=== PATIENT | female | born 1980 | race Caucasian/White ===

== ENCOUNTER 2016-12-04 18:31 | Emergency (ER) | payer SELFPAY ==
[2016-12-04] MEDS ORDERED: ONDANSETRON HCL 4 MG/2 ML VIAL ONE (18:59)
[2016-12-04] MEDS ORDERED: ONDANSETRON ODT 4 MG TAB.RAPDIS ONE (19:00)
[2016-12-04] MEDS ORDERED: FENTANYL 250 MCG/5 ML VIAL ONE (19:01)
[2016-12-04 19:04] LABS: BASOPHILS 0.4 % (0.0-2.0); EOSINOPHILS 0.8 % (0.0-6.0); EOSINOPHILS# 0.1 X 10^3uL (0.0-0.4); HEMATOCRIT 39.3 % (36.0-48.0); HEMOGLOBIN 13.4 g/dL (12.0-16.0); LYMPHOCYTES 30.6 % (20.0-40.0); LYMPHOCYTES# 2.5 X 10^3uL (0.8-3.8); MEAN CELL VOLUME 89.5 fL (80.0-100.0); MEAN CORPUS. HGB CONCENTRATION 34.1 g/dL (32.0-36.0); MEAN CORPUSCULAR HEMOGLOBIN 30.5 pg (29.0-35.0); MEAN PLATELET VOLUME 8.9 fL (7.4-10.4); MONOCYTES# 0.6 X 10^3uL (0.2-1.0); NEUTROPHILS 61.2 % (54.0-75.0); NEUTROPHILS# 5.1 X 10^3uL (2.6-6.7); PLATELET COUNT 280 X 10^3uL (130-440); RED BLOOD COUNT 4.39 X 10^6uL (4.20-6.10); WHITE BLOOD COUNT 8.3 X 10^3uL (3.9-10.7)
[2016-12-04 19:10] LABS: BLOOD UREA NITROGEN 12 mg/dL (7-17); CALCIUM 8.9 mg/dL (8.4-10.2); CHLORIDE 103 mmol/L (98-107); CREATININE 0.9 mg/dL (0.5-1.0); EST GLOMERULAR FILTRATION RATE > 60 mL/min; GLUCOSE 81 mg/dL (70-100); MAGNESIUM 1.7 mg/dL (1.6-2.3); POTASSIUM 3.9 mmol/L (3.5-5.1); SODIUM 142 mmol/L (137-145)
[2016-12-04] MEDS ORDERED: FAMOTIDINE IN SALINE, ISO-OSM 50 ML IV ONE (19:10)
[2016-12-04] MEDS ORDERED: KETOROLAC TROMETHAMINE 30 MG/ML VIAL ONE (19:10)
[2016-12-04 19:23] LABS: TROPONIN I < 0.012 ng/mL (0.00-0.034)
[2016-12-04] MEDS ORDERED: HYDROmorphone HCL 1 MG/ML SYR ONE ×3 (19:36→20:30)
[2016-12-04 19:46] LABS: ALBUMIN 4.1 g/dL (3.5-5.0); ALKALINE PHOSPHATASE 82 U/L (38-126); ALT 42 U/L (9-52); AST 39 U/L (14-36); BILIRUBIN, DIRECT 0.1 mg/dL (0.0-0.4); BILIRUBIN, TOTAL 0.5 mg/dL (0.2-1.3); LIPASE 90 U/L (23-300); TOTAL PROTEIN 7.3 g/dL (6.3-8.2)
[2016-12-04] MEDS ORDERED: LIDOCAINE VISCOUS 2% 15 ML UDC ONE (20:13)
[2016-12-04] MEDS ORDERED: MAG-AL PLUS XS SUSP 30 ML UDC ONE (20:13)
[2016-12-04] MEDS ORDERED: LORazepam 2 MG/ML INJ ONE (20:20)
[2016-12-04] MEDS ORDERED: SIMETHICONE CHEW 80 MG TABLET PO ONE (20:32)
[2016-12-04] MEDS ORDERED: PHENOBARB/HYOSCY/ATROPINE/SCOP 16.2 MG/5 ML SYR ONE (20:33)
--- NOTE | 2016-12-04 20:56 | RADIOLOGY REPORT ---
HISTORY: Chest pain COMPARISON: None. FINDINGS: 1 view of the chest obtained. The cardiomediastinal silhouette is not enlarged. Mediastinum is not wi dened. The trachea is midline. Pulmonary vascularity is within normal limits. Film is underpenetrated. Lungs are hypoventilated. No confluent infiltrate or consolidation. No pneum othorax or pleural effusion. Visualized bony structures appear intact. IMPRESSION: Negative chest. Final Electronic Signature: This report was electronically signed by Francisco J Aparicio MD on 12/04/2016 8: 53 PM. [facility] /
--- NOTE | 2016-12-04 21:17 | ER PHYSICIAN DOCUMENTATION ---
Physician Documentation [facility] Name:Patricia Quinn Age:36 yrs Sex:Female :1980 Arrival Date:12/04/2016 Time:18:28 Bed4 Private MD: Kevin Vargas Disposition: 12/04/16 20:37 Transfer ordered to [facility]. Diagnosis is Abdominal Pain, Epigastric. - Reason for transfer: Specialty. - Accepting physician is Dr. Delaney. - Condition is Undetermined. - Problem is new. - Symptoms are unchanged. COBRA Form completed? Yes Transfer - Mode of Transportation Ambulance HPI: 12/04 19:37 This 36 yrs old Female presents to ER via EMS with complaints of Chest Pain. jm 19:37 The patient or guardian reports chest pain that is located primarily in the substernal jm area. The pain does not radiate. Associated signs and symptoms: Pertinent positives: dizziness, nausea, Pertinent negatives: abdominal pain, shortness of breath. 19:41 The chest pain is described as throbbing. Duration: The patient or guardian reports a jm single episode, that is still ongoing, that lasted 90 hour(s). Severity of pain: in the emergency department the pain is a 5 / 10. EMS care prior to arrival includes: IV fluids, supplemental oxygen. The risk factors for pulmonary embolism include: This patient is morbid obese. The patient has not experienced similar symptoms in the past. The patient has not recently seen a physician. 19:43 Pt had a large bout of diarrhea yesterday. She forgot her 02 in [place] and woke up feeling nauseated. The pain started as she was sitting around. . Historical: - Allergies: PENICILLINS; Latex; Demerol; Azithromycin; Doxycycline; Codeine; Phenergan; - Home Meds: 1. Cymbalta oral 2. Depakote Oral 3. Seroquel Oral 4. Wellbutrin Oral - PSHx: CHOLECYSECTOMY; - Tetanus: < 10 years. - Ebola Screening: : Patient negative for fever greater than or equal to 101.5 degrees Fahrenheit, and additional compatible Ebola Virus Disease symptoms. Patient denies exposure to infectious person. Patient denies travel to an Ebola-affected area in the 21 days before illness onset. No symptoms or risks identified at this time. . - Social history: Smoking status: Patient states was never smoker of tobacco. Patient/guardian denies using alcohol, marijuana. - Immunization history: Pneumococcal vaccine is not up to date, Patient has never been vaccinated Flu Vaccine None. ROS: 20:25 Constitutional: Negative for fatigue, fever. jm 20:25 ENT: Negative for sinus congestion, sinus pain. 20:25 Neck: Negative for injury or acute deformity, mass. 20:25 Cardiovascular: Positive for chest pain. 20:25 Respiratory: Negative for cough, shortness of breath. 20:25 Abdomen/GI: Positive for abdominal pain, nausea. 20:25 Back: Negative for injury or acute deformity, decreased range of motion. 20:25 : Negative for injury or acute deformity, urinary symptoms. 20:25 Neuro: Negative for dizziness, weakness. 20:25 Psych: Positive for anxiety, Negative for drug dependence, alcohol dependence. Exam: 20:26 Constitutional: The patient appears alert, awake, comfortable. jm 20:26 Eyes: Periorbital structures: appear normal, Extraocular movements: no acute changes. 20:26 ENT: Mouth: is normal, Posterior pharynx: is normal. 20:26 Cardiovascular: Rate: normal, Rhythm: regular, Pulses: no pulse deficits are appreciated. 20:26 Respiratory: Respirations: normal, Breath sounds: are normal. 20:26 Abdomen/GI: Bowel sounds: normal, Palpation: moderate abdominal tenderness, in the epigastric area. 20:26 Back: pain, is absent, CVA tenderness, is absent. 20:26 Skin: injury, is not appreciated, no rash present. 20:26 Neuro: Mentation: is normal, Cerebellar function: is grossly normal. 20:26 Psych: Behavior/mood is Affect is calm. Vital Signs: 18:40 BP 134 / 84; Pulse 89; Resp 18; Temp 98.2(O); Pulse Ox 96% on R/A; Weight 158.76 kg; sj Height 5 ft. 5 in. (165.10 cm); Pain 5/10; 19:16 BP 138 / 78; Pulse 85; Resp 16; Pulse Ox 93% on 1 lpm NC; Pain 6/10; sj 19:50 Pain 3/10; sj 20:00 BP 137 / 85; Pulse 90; Resp 21; Pulse Ox 97% on 2 lpm NC; Pain 9/10; sj 20:30 BP 137 / 93; Pulse 95; Resp 19; Pulse Ox 98% on 2 lpm NC; Pain 10/10; sj 18:40 Body Mass Index 58.24 (158.76 kg, 165.10 cm) MDM: 18:33 Patient medically screened. rivas 18:43 EKG attached em3 20:28 Differential diagnosis: acute myocardial infarction, anxiety, chest wall pain, jm esophagitis, gastritis, pericarditis, pulmonary embolus. Patient took aspirin per EMS prior to arrival. Data reviewed: vital signs, nurses notes, lab test result(s), EKG, radiologic studies, and as a result, I will *Transfer Patient. Test interpretation: by ED physician or midlevel provider: plain radiologic studies, ECG. Counseling: I had a detailed discussion with the patient and/or guardian regarding: the historical points, exam findings, and any diagnostic results supporting the discharge/admit diagnosis, lab results, radiology results, the need to transfer to another facility, no CT scanner. ECG:. Medication response: Dilaudid x4 w minimal relief- pt also received Zofran, Toradol, Ativan, simethicone, Pepcid, Maalox, lidocaine, and . All which did not relieve any pain. . ED course: I have not been able to figure out her pain . Literally every lab I've done and every med I've give have gotten me no closer to the dx. I suspect ulcer at this point, but w/o a CT scanner, the pt will need to be transferred. . 22:03 ED course: ORDER- Rios catheter. rivas 22:05 Physician consultation: Rhett Castañeda was called at 08:30, was contacted at 08:33, rivas regarding patient's condition, need for transfer. Pt was accepted. . 22:09 ED course: ORDER- 2LNS boluses. rivas 12/04 19:06 Order name: CBC AUTO DIF, MDIF/RMOR IF IND; Complete Time: 19:27 EDND 12/04 19:24 Order name: BASIC METABOLIC PANEL; Complete Time: 19:27 EDND 12/04 19:24 Order name: MAGNESIUM; Complete Time: 19:27 EDND 12/04 19:24 Order name: TROPONIN I; Complete Time: : EDND 12/04 19:48 Order name: CBC AUTO DIF, MDIF/RMOR IF IND; Complete Time: 19:53 EDND 12/04 19:48 Order name: BASIC METABOLIC PANEL; Complete Time: 19:53 EDND 12/04 19:48 Order name: MAGNESIUM; Complete Time: 19:53 [facility] 12/04 19:48 Order name: HEPATIC PANEL; Complete Time: 19:53 EDMS 12/04 19:48 Order name: LIPASE; Complete Time: 19:53 EDMS 12/04 19:48 Order name: TROPONIN I; Complete Time: 19:53 [facility] 12/04 19:48 Order name: DDIMER; Complete Time: 19:53 EDND 12/04 19:17 Order name: CHEST; [place] [id number] EDND 12/04 20:57 Order name: CHEST; [place] [id number] [facility] 12/04 18:57 Order name: 12-lead EKG; Complete Time: 19:04 12/04 18:57 Order name: Iv Saline Lock; Complete Time: 19:04 12/04 18:57 Order name: Place Patient On Monitor; Complete Time: 19:04 12/04 18:57 Order name: Pulse Ox Continuous; Complete Time: 19:04 EC:28 Rhythm is regular. QRS [place] is Normal. ID interval is normal. QT interval is prolonged at 503 msec. No Q waves. T waves are Normal. No ST changes noted. Dispensed Medications: 18:35 Drug: Dilaudid 1 mg; Route: IVP; Site: right wrist; sj 19:50 Follow up: Pain 3/10 Adult; Response: Nausea is decreased; Pain is decreased sj 19:02 Drug: Toradol 30 mg; Route: IVP; Site: right wrist; sj 21:13 Follow up: Response: Pain is unchanged, physician notified sj 19:03 Drug: Pepcid 20 mg; Route: IVPB; Site: right wrist; sj 19:30 Follow up: IV Status: Completed infusion; IV Intake: 50ml sj 21:13 Follow up: Response: Pain is unchanged, physician notified sj 19:50 Drug: Dilaudid 1 mg; Route: IVP; Site: right wrist; sj 21:12 Follow up: Response: Nausea is decreased; Pain is decreased sj 20:40 Drug: Ativan 1 mg; Route: IVP; Site: right wrist; sj 21:12 Follow up: Response: Anxiety decreased sj 20:50 Drug: GI Cocktail w/ Donnatol - (Maalox Suspension 30 ml, Phenobarbital-Belladonna 15 sj ml, Lidocaine Liquid 2 % 15 ml); Route: PO; 21:12 Follow up: Response: Nausea is decreased; Pain is decreased sj 21:00 Drug: Simethicone 166 mg; Route: PO; sj 21:12 Follow up: Response: Pain is decreased sj 21:03 Drug: Dilaudid 1 mg; Route: IVP; Site: right wrist; sj 21:12 Follow up: Response: Pain is decreased sj Signatures: Len Egan RN RN tg Kevin Alvarado MD MD jm Meiklejohn, Eric [facility] Prerna Thomson
--- NOTE | 2016-12-04 21:17 | ER NURSING DOCUMENTATION ---
Nurse's Notes [facility] Name:Patricia Quinn Age:36 yrs Sex:Female :1980 Arrival Date:12/04/2016 Time:18:28 Bed4 Private MD: Diagnosis:Abdominal Pain, Epigastric Presentation: 12/04 18:35 Presenting complaint: Patient states: Midsternal chest pain and significant nausea tg starting at 1730. Not reproducible with palpation. Became dizzy and lightheaded but no diaphoresis. Very nauseated now. Significant diarrhea last noc. Transition of care: patient was not received from another setting of care. AIR CAT ACTIVATION no. Asprin Given by EMS 324 mg po. Care prior to arrival: 12 lead EKG IV initiated. gauge and site 22g Rwrist Saline lock initiated. Oxygen administered. Medication(s) given: ASA, 81mg x 4 Fentanyl 100MCG NTG, x2 Zofran 8mgIVP. Mechanism of Injury: No Mechanism of Injury. 18:35 Acuity: DIANA 2 tg 18:35 Method Of Arrival: EMS: 410 tg 18:35 Notified ED Physician of patient's arrival and CC Christiano Castañeda notified. Triage Assessment: 18:38 General: Appears uncomfortable, Behavior is cooperative, pleasant. Pain: Complains of tg pain in diaphragm and xyphoid area Pain radiates to abdomen. Cardiovascular: Rhythm is regular. Respiratory: Respiratory effort is even, unlabored. GI: Abdomen is obese, Reports upper abdominal pain, diarrhea, nausea. Historical: - Allergies: PENICILLINS; Latex; Demerol; Azithromycin; Doxycycline; Codeine; Phenergan; - Home Meds: 1. Cymbalta oral 2. Depakote Oral 3. Seroquel Oral 4. Wellbutrin Oral - PSHx: CHOLECYSECTOMY; - Tetanus: < 10 years. - Ebola Screening: : Patient negative for fever greater than or equal to 101.5 degrees Fahrenheit, and additional compatible Ebola Virus Disease symptoms. Patient denies exposure to infectious person. Patient denies travel to an Ebola-affected area in the 21 days before illness onset. No symptoms or risks identified at this time. . - Social history: Smoking status: Patient states was never smoker of tobacco. Patient/guardian denies using alcohol, marijuana. - Immunization history: Pneumococcal vaccine is not up to date, Patient has never been vaccinated Flu Vaccine None. Screenin:14 Infectious Disease Risk None. Abuse screen: Denies threats or abuse. Denies injuries sj from another. Nutritional screening: No deficits noted. Assessment: 19:09 General: Appears distressed, ill, Behavior is cooperative, pleasant. Pain: Complains of sj pain in mid-sternal area Pain does not radiate. Pain currently is 5 out of 10 on a pain scale. Pain began 1 hour ago. Neuro: Level of Consciousness is awake, alert, Oriented to person, place, time, event. Cardiovascular: Capillary refill < 3 seconds Heart tones S1 S2. Respiratory: Airway is patent Respiratory effort is even, unlabored, Respiratory pattern is regular, Breath sounds are clear bilaterally. Breath sounds are diminished. Vital Signs: 18:40 BP 134 / 84; Pulse 89; Resp 18; Temp 98.2(O); Pulse Ox 96% on R/A; Weight 158.76 kg; sj Height 5 ft. 5 in. (165.10 cm); Pain 5/10; 19:16 BP 138 / 78; Pulse 85; Resp 16; Pulse Ox 93% on 1 lpm NC; Pain 6/10; sj 19:50 Pain 3/10; sj 20:00 BP 137 / 85; Pulse 90; Resp 21; Pulse Ox 97% on 2 lpm NC; Pain 9/10; sj 20:30 BP 137 / 93; Pulse 95; Resp 19; Pulse Ox 98% on 2 lpm NC; Pain 10/10; sj 18:40 Body Mass Index 58.24 (158.76 kg, 165.10 cm) ED Course: 18:28 Patient arrived in ED. em3 18:33 Kevin Alvarado MD is Attending Physician. jm 18:36 Triage completed. tg 18:36 Arm band placed on Bed in low position Call Light in Reach Gowned HOB Elevated Side tg rails up x2. 18:37 Valuables Remains with patient. paper reeler on. Pulse ox on. tg 18:37 Maintain field IV. Gauge & site: 22g R wrist and 22g L wrist. tg 18:43 EKG attached em3 19:02 Prerna Thomson is Primary Nurse. sj 19:14 NIBP on. Warm blanket given. sj 19:17 CHEST; SINGLE [place]IEW [id number] In Process Unspecified. EDMS 20:45 Rios cath inserted 16 Fr. Balloon inflated. To gravity drainage. Oxygen Oxygen sj administration via nasal cannula @ 2L/min. Administered Medications: 18:35 Drug: Dilaudid 1 mg; Route: IVP; Site: right wrist; sj 19:50 Follow up: Pain 3/10 Adult; Response: Nausea is decreased; Pain is decreased sj 19:02 Drug: Toradol 30 mg; Route: IVP; Site: right wrist; sj 21:13 Follow up: Response: Pain is unchanged, physician notified sj 19:03 Drug: Pepcid 20 mg; Route: IVPB; Site: right wrist; sj 19:30 Follow up: IV Status: Completed infusion; IV Intake: 50ml sj 21:13 Follow up: Response: Pain is unchanged, physician notified sj 19:50 Drug: Dilaudid 1 mg; Route: IVP; Site: right wrist; sj 21:12 Follow up: Response: Nausea is decreased; Pain is decreased sj 20:40 Drug: Ativan 1 mg; Route: IVP; Site: right wrist; sj 21:12 Follow up: Response: Anxiety decreased sj 20:50 Drug: GI Cocktail w/ Donnatol - (Maalox Suspension 30 ml, Phenobarbital-Belladonna 15 sj ml, Lidocaine Liquid 2 % 15 ml); Route: PO; 21:12 Follow up: Response: Nausea is decreased; Pain is decreased sj 21:00 Drug: Simethicone 166 mg; Route: PO; sj 21:12 Follow up: Response: Pain is decreased sj 21:03 Drug: Dilaudid 1 mg; Route: IVP; Site: right wrist; sj 21:12 Follow up: Response: Pain is decreased sj Intake: 19:30 IV: 50ml; Total: 50ml. sj Outcome: 20:37 ER care complete, transfer ordered by MD. hathaway 20:45 Transferred: Patient will be transferred to: [facility]. Facility sj Acceptance Time: December 04, 2016 at 20:30 Patient's face sheet was faxed to accepting facility. Face Sheet included patient's name, address, age, gender, contact information and insurance information. Patient will be transported by: [facility] ground. Report called to: [place] [employer] equipment operator Nurse and Physician Charting and Notes were sent to Accepting Facility. All tests and/or procedures with results, if applicable, were sent to accepting facility. 20:45 Condition: improved 20:45 Instructed on need for transfer Demonstrated understanding of instructions. 21:16 Patient left the ED. sj Signatures: Dispatcher [employer] Len Sequeira RN RN tg Meyer, John, MD MD jm Meiklejohn, Eric em3 Janzen, Sarah sj
== END 2016-12-04 21:17 | disposition short-term general hospital (02) ==
LOC: ER 18:31
DX: R10.13 Epigastric pain (principal); R07.2 Precordial pain; R11.0 Nausea; F41.9 Anxiety disorder, unspecified; E66.01 Morbid (severe) obesity due to excess calories; Z79.899 Other long term (current) drug therapy; Z99.89 Dependence on other enabling machines and devices; Z74.3 Need for continuous supervision; Z46.6 Encounter for fitting and adjustment of urinary device
CPT/HCPCS: 51702; 71010; 80048; 80076; 83690; 83735; 84484; 85025; 85379; 93005; 96365; 96375; 96376; 99285; A0425; A0427; J1170; J1885; J2060; J2405